=== PATIENT | female | born 1965 | race Caucasian/White ===

== ENCOUNTER → 2017-12-31 | Outpatient (REF) | payer BC ==
[2017-12-31 15:17] LABS: ANION GAP 8 MEQ/L (8-16); BLOOD UREA NITROGEN 16 MG/DL (7-18); CALCIUM LEVEL 8.9 MG/DL (8.5-10.1); CARBON DIOXIDE LEVEL 31 MEQ/L (21-32); CHLORIDE LEVEL 106 MEQ/L (98-107); CREATININE FOR GFR 0.95 MG/DL (0.55-1.30); GLOMERULAR FILTRATION RATE > 60.0 (>51); GLUCOSE, FASTING 115 MG/DL (70-100); POTASSIUM SERUM 4.3 MEQ/L (3.5-5.1); SODIUM LEVEL 145 MEQ/L (136-145)
== END ==
LOC: M SFHCLACO 10:24
DX: I10 Essential (primary) hypertension (principal); E03.9 Hypothyroidism, unspecified

== ENCOUNTER → 2020-10-18 | Outpatient (REF) | payer BC ==
[2020-10-18 13:25] LABS: ALBUMIN 3.8 GM/DL (3.2-5.2); ALT/SGPT 41 U/L (12-78); BILIRUBIN,TOTAL 0.4 MG/DL (0.2-1.0); BLOOD UREA NITROGEN 19 MG/DL (7-18); CALCIUM LEVEL 8.8 MG/DL (8.5-10.1); CARBON DIOXIDE LEVEL 30 MEQ/L (21-32); CHLORIDE LEVEL 107 MEQ/L (98-107); CHOLESTEROL LEVEL 215 MG/DL (<200); CHOLESTEROL RISK RATIO 6.142 (<5); CREATININE FOR GFR 0.76 MG/DL (0.55-1.30); GLOMERULAR FILTRATION RATE > 60.0 (>51); GLUCOSE, FASTING 112 MG/DL (70-100); HDL CHOLESTEROL 35 MG/DL (>40); LDL CHOLESTEROL 117 MG/DL (<100); NON-HDL-C 180 MG/DL; POTASSIUM SERUM 4.2 MEQ/L (3.5-5.1); SODIUM LEVEL 142 MEQ/L (136-145); TOTAL PROTEIN 6.7 GM/DL (6.4-8.2); TRIGLYCERIDES LEVEL 315 MG/DL (<150)
== END ==
LOC: M SFHCADAM 10:04
PROVIDERS: ATTEND Physician Assistant
DX: E03.9 Hypothyroidism, unspecified (principal); I10 Essential (primary) hypertension; E66.01 Morbid (severe) obesity due to excess calories

== ENCOUNTER → 2021-01-02 | Outpatient (REF) | payer BC ==
[2021-01-02 15:08] LABS: HEMOGLOBIN A1c 6.3 %
== END ==
LOC: M SFHCADAM 09:39
PROVIDERS: ATTEND Physician Assistant
DX: R73.9 Hyperglycemia, unspecified (principal)

== ENCOUNTER 2021-01-09 15:50 | Emergency (ER) | payer BC ==
[~2021-01-09] VITALS: Ht 167.6 cm; Wt 90.2 kg
[2021-01-09] MEDS ORDERED: METO1TAB33 (16:12)
[2021-01-09] MEDS ORDERED: IRBE300T7 (16:12)
[2021-01-09] MEDS ORDERED: DILT120C89 (16:12)
[2021-01-09] MEDS ORDERED: LEVO75TA4 (16:12)
[2021-01-09] MEDS ORDERED: MELO15TA28 (16:12)
[2021-01-09] MEDS ORDERED: BUPR150T12 (16:12)
--- NOTE | 2021-01-09 17:50 | REPVR ---
PROCEDURE INFORMATION: Exam: CT Abdomen And Pelvis Without Contrast Exam date and time: 01/09/2021 5:19 PM Age: 55 years old Clinical indication: Abdominal pain; Additional info: R/O stone right flank, HX of same TECHNIQUE: Imaging protocol: Computed tomography of the abdomen and pelvis without contrast. Radiation optimization: All CT scans at this facility use at least one of these dose optimization techniques: automated exposure control; mA and/or kV adjustment per patient size (includes targeted exams where dose is matched to clinical indication); or iterative reconstruction. COMPARISON: No relevant prior studies available. FINDINGS: Lungs: No suspicious mass or airspace process in the visualized lung bases. Liver: Liver demonstrates fatty infiltration with focal sparing around the gallbladder fossa. Gallbladder and bile ducts: Gallbladder is present and shows no evidence of gallstone. Pancreas: Noncontrast pancreas shows no obvious mass or adjacent fluid. Spleen: Noncontrast spleen shows no obvious focal deformity. Adrenal glands: Adrenal glands are normal in appearance. Kidneys and ureters: Left kidney demonstrates nonobstructive calculi. Right kidney demonstrates perinephric stranding and moderate to severe hydroureteronephrosis secondary to a right UVJ stone measuring 4 x 2 mm. Stomach and bowel: No evidence of small bowel obstruction. No evidence of acute diverticulitis. Appendix: Normal caliber appendix is identified, with no adjacent inflammation. Intraperitoneal space: No pneumoperitoneum. Vasculature: No abdominal aortic aneurysm. Lymph nodes: No enlarged lymph nodes. Urinary bladder: Urinary bladder appears normal. Reproductive: Female reproductive organs appear unremarkable. Bones/joints: Bony structures are normal except for lumbar spine degenerative disc changes. Soft tissues: No effacement of normal fat planes in the ischiorectal fossa. Other findings: Limited evaluation without enteric or IV contrast. IMPRESSION: 1. Moderately severe right hydroureteronephrosis secondary to a 4 x 2 mm right UVJ stone. 2. Nonobstructive left renal calculi. 3. Diffuse hepatic steatosis and hepatomegaly Electronically signed by: Gulshan Parks On 01/09/2021 17:49:47 PM
[2021-01-09 18:34] LABS: BASO % 0.1 % (0.0-1.0); EOS # 0.1 10^3/uL (0.0-0.5); EOS % 0.7 % (0.0-3.0); HEMATOCRIT 44.7 % (36.0-47.0); HEMOGLOBIN 15.5 g/dl (12.0-15.5); LYMPH # 3.1 10^3/uL (1.5-5.0); LYMPH % 21.6 % (24.0-44.0); MEAN CORPUSCULAR HEMOGLOBIN 30.5 pg (27.0-33.0); MEAN CORPUSCULAR HGB CONC 34.7 g/dl (32.0-36.5); MONO # 1.1 10^3/uL (0.0-0.8); MONO % 7.7 % (2.0-8.0); NEUTROPHILS # 9.8 10^3/uL (1.5-8.5); NEUTROPHILS % 69.5 % (36.0-66.0); PLATELET COUNT, AUTOMATED 307 10^3/uL (150-450); RED BLOOD COUNT 5.08 10^6/uL (4.00-5.40); WHITE BLOOD COUNT 14.1 10^3/uL (4.0-10.0)
[2021-01-09] MEDS ORDERED: NS 500 ML IV ONE (18:45)
[2021-01-09 18:57] LABS: ALBUMIN 4.3 GM/DL (3.2-5.2); BILIRUBIN,DIRECT 0.2 MG/DL (0.0-0.2); BILIRUBIN,TOTAL 0.8 MG/DL (0.2-1.0); CALCIUM LEVEL 9.1 MG/DL (8.5-10.1); CREATININE FOR GFR 1.21 MG/DL (0.55-1.30); POTASSIUM SERUM 3.2 MEQ/L (3.5-5.1); TOTAL PROTEIN 7.5 GM/DL (6.4-8.2)
[2021-01-09] MEDS ORDERED: KETOROLAC 30 MG/ML 1ML VIAL IV ONE (19:05)
[2021-01-09] MEDS ORDERED: FLOM0.4C39 PO (19:54)
[2021-01-09] MEDS ORDERED: KETO10TAB PO (19:54)
[2021-01-09 19:55] VITALS: BP 159/85
== END 2021-01-09 20:16 | disposition home or self-care (01) ==
LOC: M ED 15:50
DX: N13.2 Hydronephrosis with renal and ureteral calculous obstruction (principal); K76.0 Fatty (change of) liver, not elsewhere classified; R16.0 Hepatomegaly, not elsewhere classified; I10 Essential (primary) hypertension; E03.9 Hypothyroidism, unspecified; Z79.890 Hormone replacement therapy; Z79.899 Other long term (current) drug therapy
CPT/HCPCS: 74176; 80048; 80076; 81001; 83690; 85025; 96361; 96374; 99283; J1885

== ENCOUNTER → 2021-02-02 | Outpatient (REF) | payer BC ==
[~2021-02-02] MED LIST: BUPR150T12; DILT120C89; FLOM0.4C39 PO; IRBE300T7; KETO10TAB PO; LEVO75TA4; MELO15TA28; METO1TAB33
[2021-02-02 13:33] LABS: APPEARANCE, URINE CLOUDY (CLEAR); BACTERIA, URINE AUTO NEGATIVE (NEGATIVE); BILIRUBIN, URINE AUTO NEGATIVE (NEGATIVE); BLOOD, URINE BLOOD NEGATIVE (NEGATIVE); COLOR, URINE AMBER (YELLOW); GLUCOSE, URINE (UA) AUTO NEGATIVE (NEGATIVE); KETONE, URINE AUTO NEGATIVE (NEGATIVE); LEUKOCYTE ESTERASE, URINE AUTO TRACE (NEGATIVE); MUCUS, URINE SMALL (NEGATIVE); NITRITE, URINE AUTO NEGATIVE (NEGATIVE); PROTEIN, URINE AUTO 1+ mg/dL (NEGATIVE); RBC, URINE AUTO 4 /HPF (0-3); SPECIFIC GRAVITY URINE AUTO 1.016 (1.002-1.035); SQUAMOUS EPITHELIAL CELL UR AU 2 /HPF (0-6); UROBILINOGEN, URINE AUTO 0.2 mg/dL (0.0-2.0); WBC, URINE AUTO 6 /HPF (0-3)
== END ==
LOC: M SMT 13:05
PROVIDERS: ATTEND Nurse Practitioner Family
DX: N20.0 Calculus of kidney (principal)

== ENCOUNTER → 2021-02-21 | Outpatient (CLI) | payer BC ==
--- NOTE | 2021-02-21 21:59 | REP ---
INDICATION: KIDNEY STONES COMPARISON: None. TECHNIQUE: Supine view of the abdomen and pelvis. FINDINGS: Evaluation of the urinary tract system is limited due to excessive amounts of stool throughout the colon. However, nonobstructing left lower pole intrarenal calculi are identified with a grouping of small stones measuring roughly 4.5 x 8 mm. IMPRESSION: Limited examination. Left intrarenal calculi noted. <Electronically signed by Smith Castro > 02/21/21 [id number]
== END ==
LOC: M ADAMS 14:06
PROVIDERS: ATTEND Nurse Practitioner Family
DX: N20.0 Calculus of kidney (principal)

== ENCOUNTER → 2021-02-24 | Outpatient (CLI) | payer BC ==
--- NOTE | 2021-02-24 18:12 | REP ---
INDICATION: RENAL STONE COMPARISON: None TECHNIQUE: Real time caldwell scale ultrasound examination using curved array transducer. FINDINGS: Bilateral kidneys are normal in contour, size, echogenicity, and reniform shape. No hydronephrosis, nephrolithiasis, cystic or renal mass lesion identified. IMPRESSION: 1. Normal appearance of the bilateral kidneys. No obvious hydronephrosis or nephrolithiasis. <Electronically signed by Smith Castro > 02/24/21 [id number]
--- NOTE | 2021-02-24 18:15 | REP ---
INDICATION: RENAL STONE COMPARISON: None TECHNIQUE: Real time B-mode ultrasound examination using curved array transducer. FINDINGS: Findings suggest mild bladder wall thickening. No obvious bladder stones or mass lesion identified. A left ureteral jet was noted, but no right ureteral jet was identified during examination. Prevoid bladder measures 5.9 x 6.0 x 3.2 cm (74 cc). Postvoid bladder measures 2.6 x 3.2 x 1.6 cm (8.7 cc). Postvoid residual: 12% IMPRESSION: 1. No right ureteral jet identified during examination. Findings are nonspecific although right ureteral obstruction cannot be excluded and should be correlated with physical examination. <Electronically signed by Smith Castro > 02/24/21 [id number]
== END ==
LOC: M RAD 16:44
PROVIDERS: ATTEND Nurse Practitioner Family
DX: N20.0 Calculus of kidney (principal)

== ENCOUNTER → 2021-03-01 | Outpatient (CLI) | payer BC ==
[~2021-03-01] MED LIST changes: +ASPI81TA26 PO; -BUPR150T12; +BUPR150T12 PO; +CYMB60CA3 PO; -DILT120C89; +DILT120C89 PO; +HYDR-3713 PO; -IRBE300T7; +IRBE300T7 PO; -LEVO75TA4; +LEVO75TA4 PO; -MELO15TA28; +MELO15TA28 PO; -METO1TAB33; +METO1TAB33 PO; +VITMTA PO
== END ==
LOC: M LABSMTC 12:03
PROVIDERS: ATTEND Anesthesiology
DX: Z01.812 Encounter for preprocedural laboratory examination (principal); Z20.822 Contact with and (suspected) exposure to COVID-19

== ENCOUNTER → 2021-03-01 | Outpatient (REF) | payer BC ==
[2021-03-01 13:08] LABS: APPEARANCE, URINE HAZY (CLEAR); BACTERIA, URINE AUTO NEGATIVE (NEGATIVE); BILIRUBIN, URINE AUTO NEGATIVE (NEGATIVE); BLOOD, URINE BLOOD NEGATIVE (NEGATIVE); COLOR, URINE AMBER (YELLOW); GLUCOSE, URINE (UA) AUTO NEGATIVE (NEGATIVE); KETONE, URINE AUTO NEGATIVE (NEGATIVE); LEUKOCYTE ESTERASE, URINE AUTO TRACE (NEGATIVE); MUCUS, URINE SMALL (NEGATIVE); NITRITE, URINE AUTO NEGATIVE (NEGATIVE); PROTEIN, URINE AUTO NEGATIVE (NEGATIVE); RBC, URINE AUTO 1 /HPF (0-3); SPECIFIC GRAVITY URINE AUTO 1.013 (1.002-1.035); SQUAMOUS EPITHELIAL CELL UR AU 2 /HPF (0-6); UROBILINOGEN, URINE AUTO 0.2 mg/dL (0.0-2.0); WBC, URINE AUTO 4 /HPF (0-3)
== END ==
LOC: M SMT 12:46
PROVIDERS: ATTEND Nurse Practitioner Women's Health
DX: Z01.812 Encounter for preprocedural laboratory examination (principal); N20.0 Calculus of kidney

== ENCOUNTER → 2021-03-01 | Outpatient (REF) | payer BC ==
[2021-03-01 17:14] LABS: HEMOGLOBIN 14.5 g/dl (12.0-15.5); MEAN CORPUSCULAR HGB CONC 33.7 g/dl (32.0-36.5); MEAN CORPUSCULAR VOLUME 91.9 fl (80.0-96.0); PLATELET COUNT, AUTOMATED 352 10^3/uL (150-450); RED BLOOD COUNT 4.68 10^6/uL (4.00-5.40); WHITE BLOOD COUNT 8.5 10^3/uL (4.0-10.0)
[2021-03-01 17:31] LABS: BLOOD UREA NITROGEN 15 MG/DL (7-18); CALCIUM LEVEL 9.2 MG/DL (8.5-10.1); CARBON DIOXIDE LEVEL 30 MEQ/L (21-32); CHLORIDE LEVEL 108 MEQ/L (98-107); CREATININE FOR GFR 0.91 MG/DL (0.55-1.30); GLOMERULAR FILTRATION RATE > 60.0 (>51); GLUCOSE, FASTING 128 MG/DL (70-100); POTASSIUM SERUM 4.6 MEQ/L (3.5-5.1); SODIUM LEVEL 143 MEQ/L (136-145)
[2021-03-01 17:52] LABS: INR 0.96; PROTHROMBIN TIME 13.2 SECONDS (12.7-14.5)
[2021-03-01 17:53] LABS: PARTIAL THROMBOPLASTIN TIME 29.3 SECONDS (25.9-37.0)
== END ==
LOC: M SFHCADAM 13:14
PROVIDERS: ATTEND Nurse Practitioner Women's Health
DX: Z01.812 Encounter for preprocedural laboratory examination (principal); N20.0 Calculus of kidney

== ENCOUNTER 2021-03-02 06:59 | Day surgery (SDC) | payer BC ==
[~2021-03-02] VITALS: Ht 167.6 cm; Wt 87.5 kg
[~2021-03-02 06:59] MED LIST changes: -HYDR-3713 PO; +ceFAZolin SOD 2 GM in IV 1 EA IV ONE
[2021-03-02] MEDS ORDERED: LIDOCAINE 2% 100MG/5ML SDV (FOR ANES.) As Ordered ONE (07:17)
[2021-03-02] MEDS ORDERED: propofoL 500 MG/50 ML VIAL As Ordered ONE (07:18)
[2021-03-02] MEDS ORDERED: MIDAZOLAM INJ 2MG/2ML VIAL (J2250 PER 1MG) As Ordered ONE (07:20)
[2021-03-02] MEDS ORDERED: fentaNYL 100 MCG/2 ML INJECTION (J3010) As Ordered ONE (07:21)
--- NOTE | 2021-03-02 08:35 | REP ---
INDICATION: KUB PRIOR TO SDC COMPARISON: 02/21/2021 TECHNIQUE: Supine view of the abdomen and pelvis. FINDINGS: Nonobstructing lower pole left renal calculi measuring up to 10 mm. Further evaluation of the urinary tract system is limited due to overlying bowel gas. No bowel obstruction. No obvious organomegaly. Phleboliths noted in the pelvis. Skeletal structures intact. IMPRESSION: Nonobstructing left renal calculi. <Electronically signed by Smith Castro > 03/02/21 [id number]
[2021-03-02] MEDS ORDERED: ceFAZolin 2 GM/D5W 50 ML IV BAG (J0690 PER 500MG) As Ordered ONE (08:44)
--- NOTE | 2021-03-02 08:46 | ROOPDOC ---
[facility] Report Of Operation Report of Operation DATE OF PROCEDURE: 03/02/21 PREPROCEDURE DIAGNOSES: [left renal stone]. POSTPROCEDURE DIAGNOSES: [same]. PROCEDURE PERFORMED: [eswl left renal stone]. SURGEON: [Nicolasa]MD SUPERVISOR PLEATING: [none], ANESTHESIA: [mac]. ESTIMATED BLOOD LOSS: Approximately [0] mL. COMPLICATIONS: [none]. REMARKS: [55yo wf with left renal stones. Options discussed. Pt opted for eswl. No guarantees given. Risks discussed including infection, pain, bleeding, scarring, failure of surgery, need for more surgery, injury to gu tract and others.]. FINDINGS: SPECIMENS REMOVED: [none] PROCEDURE NOTE: . DESCRIPTION OF PROCEDURE: [Met with pt in preop area and surgery discussed. Pt wished to proceed. Questions answered. Pt brought to OR room. Supine position on lithotripter. Well padded. Surgery done under IV antibiotic. Time out performed. Mac anesthesia. Fluroscopy used to locate stone. Stone easily seen. Eswl performed. 2500 shocks. Fluoroscopy used intermittently. Power increased throughout. Pt tolerated all well.]. EDDIE CARBONE MD Mar 02, 2021 08:46
[2021-03-02] MEDS ORDERED: HYDR-3713 PO (08:54)
[2021-03-02] MEDS ORDERED: ONDANSETRON 4MG/2ML VIAL As Ordered ONE (08:59)
[2021-03-02] MEDS ORDERED: dexameTHASONE 4 MG/ML 1ML VIAL (J1100 PER 1MG) As Ordered ONE (08:59)
[2021-03-02] MEDS ORDERED: KETOROLAC 60MG 2ML VIAL As Ordered ONE (08:59)
[2021-03-02 10:15] VITALS: BP 120/68
== END 2021-03-02 10:21 | disposition home or self-care (01) ==
LOC: M SDC 06:59
PROVIDERS: ATTEND Urology
DX: E03.9 Hypothyroidism, unspecified (principal); N20.0 Calculus of kidney; F32.9 Major depressive disorder, single episode, unspecified; Z79.82 Long term (current) use of aspirin; Z79.899 Other long term (current) drug therapy
CPT/HCPCS: 50590; 74018; J0690; J1100; J1885; J2250; J2405; J3010

== ENCOUNTER → 2021-06-27 | Outpatient (REF) | payer BC ==
[~2021-06-27] MED LIST changes: -CYMB60CA3 PO; +CYMB60CA4 PO; +HYDR-3713 PO; -ceFAZolin SOD 2 GM in IV 1 EA IV ONE
[2021-06-27 17:51] LABS: APPEARANCE, URINE CLOUDY (CLEAR); BACTERIA, URINE AUTO NEGATIVE (NEGATIVE); BILIRUBIN, URINE AUTO 1+ (NEGATIVE); BLOOD, URINE BLOOD NEGATIVE (NEGATIVE); CALCIUM OXALATE CRYSTALS MODERATE; COLOR, URINE AMBER (YELLOW); GLUCOSE, URINE (UA) AUTO NEGATIVE (NEGATIVE); KETONE, URINE AUTO TRACE mg/dL (NEGATIVE); LEUKOCYTE ESTERASE, URINE AUTO 1+ (NEGATIVE); MUCUS, URINE SMALL (NEGATIVE); NITRITE, URINE AUTO NEGATIVE (NEGATIVE); PROTEIN, URINE AUTO 2+ mg/dL (NEGATIVE); RBC, URINE AUTO 0 /HPF (0-3); SPECIFIC GRAVITY URINE AUTO 1.024 (1.002-1.035); SQUAMOUS EPITHELIAL CELL UR AU 3 /HPF (0-6); WBC, URINE AUTO 46 /HPF (0-3)
[2021-06-27 18:22] LABS: ALT/SGPT 44 U/L (12-78); BILIRUBIN,TOTAL 0.6 MG/DL (0.2-1.0); BLOOD UREA NITROGEN 16 MG/DL (7-18); CALCIUM LEVEL 9.3 MG/DL (8.5-10.1); CARBON DIOXIDE LEVEL 29 MEQ/L (21-32); CHLORIDE LEVEL 108 MEQ/L (98-107); CHOLESTEROL LEVEL 234 MG/DL (<200); CREATININE FOR GFR 1.12 MG/DL (0.55-1.30); GLOMERULAR FILTRATION RATE 53.6 (>51); GLUCOSE, FASTING 138 MG/DL (70-100); HDL CHOLESTEROL 36 MG/DL (>40); LDL CHOLESTEROL 137 MG/DL (<100); NON-HDL-C 198 MG/DL; POTASSIUM SERUM 3.8 MEQ/L (3.5-5.1); SODIUM LEVEL 143 MEQ/L (136-145); THYROID STIMULATING HORMONE 0.929 uIU/ML (0.358-3.740); TOTAL PROTEIN 7.3 GM/DL (6.4-8.2); TRIGLYCERIDES LEVEL 306 MG/DL (<150)
[2021-06-27 18:23] LABS: HEPATITIS B SURFACE ANTIBODY NEGATIVE (POSITIVE)
[2021-06-27 18:29] LABS: HEMOGLOBIN A1c 6.1 %
[2021-06-27 18:34] LABS: HEPATITIS B SURFACE ANTIGEN NEGATIVE (NEGATIVE)
[2021-06-27 19:02] LABS: HEPATITIS B CORE ANTIBODY IGM NEGATIVE (NEGATIVE); HEPATITIS C VIRUS ABY INDEX 0.1 INDEX (<0.8)
== END ==
LOC: M SFHCADAM 14:15
PROVIDERS: ATTEND Physician Assistant
DX: Z00.00 Encounter for general adult medical examination without abnormal findings (principal); I10 Essential (primary) hypertension; E03.9 Hypothyroidism, unspecified; E66.01 Morbid (severe) obesity due to excess calories; R73.9 Hyperglycemia, unspecified

== ENCOUNTER → 2021-07-11 | Outpatient (CLI) | payer BC ==
--- NOTE | 2021-07-11 21:02 | REP ---
INDICATION: NEPHROLITHIASIS COMPARISON: 03/02/2021 TECHNIQUE: Supine view of the abdomen and pelvis. FINDINGS: Evaluation for urinary tract calcifications is limited due to overlying bowel gas. No obvious renal stones are identified. Calcifications in the pelvis likely represent phleboliths. The bowel gas pattern is nonspecific. No organomegaly. No foreign body. Skeletal structures are age-appropriate. IMPRESSION: Limited evaluation for underlying urinary tract calcifications. <Electronically signed by Smith Castro > 07/11/21 [id number]
== END ==
LOC: M ADAMS 15:24
PROVIDERS: ATTEND Urology
DX: N20.0 Calculus of kidney (principal)

== ENCOUNTER → 2022-08-05 | Outpatient (CLI) | payer BC | LOC: M LABSMTC 12:06 | PROVIDERS: ATTEND Anesthesiology | DX: Z01.812 Encounter for preprocedural laboratory examination (principal); Z11.52 Encounter for screening for COVID-19 ==

== ENCOUNTER 2022-08-08 07:32 | Day surgery (SDC) | payer BC ==
[~2022-08-08] VITALS: Ht 167.6 cm; Wt 87.5 kg
[~2022-08-08 07:32] MED LIST changes: +NS 1,000 ML IV ONE
[2022-08-08] MEDS ORDERED: propofoL 200 MG/20 ML VIAL As Ordered ONE ×2 (08:22→08:34)
[2022-08-08] MEDS ORDERED: LIDOCAINE 2% 100MG/5ML SDV (FOR ANES.) As Ordered ONE (08:22)
[2022-08-08 09:00] VITALS: BP 135/92
== END 2022-08-08 09:08 | disposition home or self-care (01) ==
LOC: M OPP 07:32
PROVIDERS: ATTEND Surgery
DX: Z12.11 Encounter for screening for malignant neoplasm of colon (principal); K64.8 Other hemorrhoids; Z79.1 Long term (current) use of non-steroidal anti-inflammatories (NSAID); Z79.890 Hormone replacement therapy; Z79.899 Other long term (current) drug therapy; I10 Essential (primary) hypertension; E03.9 Hypothyroidism, unspecified; Z87.442 Personal history of urinary calculi

== ENCOUNTER → 2023-06-27 | Outpatient (REF) | payer BC ==
[~2023-06-27] MED LIST changes: -NS 1,000 ML IV ONE
== END ==
LOC: M SFHCADAM 15:42
PROVIDERS: ATTEND Physician Assistant
DX: Z53.9 Procedure and treatment not carried out, unspecified reason (principal); I10 Essential (primary) hypertension; E78.00 Pure hypercholesterolemia, unspecified; Z12.31 Encounter for screening mammogram for malignant neoplasm of breast

== ENCOUNTER 2024-04-18 18:01 | Inpatient (IN) | payer BC ==
[~2024-04-18] VITALS: Ht 167.6 cm; Wt 83.5 kg
[~2024-04-18 18:01] MED LIST changes: +IRBE300T25 PO; -IRBE300T7 PO
[2024-04-18 19:33] LABS: HEMATOCRIT 37.3 % (36.0-47.0); HEMOGLOBIN 13.4 g/dl (12.0-15.5); MEAN CORPUSCULAR HEMOGLOBIN 30.7 pg (27.0-33.0); MEAN CORPUSCULAR HGB CONC 35.9 g/dl (32.0-36.5); MEAN CORPUSCULAR VOLUME 85.4 fl (80.0-96.0); RED BLOOD COUNT 4.37 10^6/uL (4.00-5.40); WHITE BLOOD COUNT 28.4 10^3/uL (4.0-10.0)
[2024-04-18] MEDS: KETOROLAC 30 MG/ML 1ML VIAL IV ONE (19:45)
[2024-04-18] MEDS: ONDANSETRON 4MG 2ML VIAL IV ONE (19:45)
[2024-04-18 19:52] LABS: PLATELET COUNT, AUTOMATED 78 10^3/uL (150-450)
[2024-04-18 19:58] LABS: ATYPICAL LYMPH 1 % (0-5); BASOPHILS 1 % (0-1); LYMPHOCYTES 5 % (16-44); MONOCYTES 16 % (0-5); NEUTROPHILS 63 % (28-66); PLATELET ESTIMATE DECREASED (NORMAL)
[2024-04-18 20:01] LABS: ANISOCYTOSIS 1+
[2024-04-18] MEDS: NS 1,000 ML IV ONE ×3 (20:10→23:25)
[2024-04-18] MEDS: NS 2,310 ML in IV 1 EA IV ONE (20:15)
[2024-04-18] MEDS: cefTRIAXone SOD 2 GM in DEXTROSE 5% (D5W) ADV/MINI-BAG 50 ML IV ONE (20:33)
[2024-04-18 21:30] LABS: ALBUMIN 2.7 G/DL (3.2-5.2); BILIRUBIN,DIRECT 0.3 MG/DL (<0.4); BILIRUBIN,TOTAL 0.7 MG/DL (0.3-1.2); CALCIUM LEVEL 8.3 MG/DL (8.5-10.1); CREATININE FOR GFR 3.81 MG/DL (0.55-1.30); GLOMERULAR FILTRATION RATE 12.9 (>51); POTASSIUM SERUM 4.7 MMOL/L (3.5-5.1); TOTAL PROTEIN 5.8 G/DL (5.7-8.2)
[2024-04-18] MEDS: NS 1,000 ML IV SCH (23:00)
[2024-04-18] MEDS ORDERED: MOM 30ML SUSPENSION UDC PO PRN (23:10)
[2024-04-18] MEDS ORDERED: DILT240C83 PO (23:37)
[2024-04-18] MEDS ORDERED: HOME MED LIST COMPLETE! XX SCH (23:40)
[2024-04-19] VITALS (16 sets, daily range): BP systolic 87–147; BP diastolic 54–98; TEMP 96.9–98.3; O2SAT 88–99
[2024-04-19] MEDS: ACETAMINOPHEN 325 MG TAB PO PRN (00:59)
[2024-04-19] MEDS: ONDANSETRON 4MG 2ML VIAL IV PRN (01:00)
[2024-04-19 01:40] LABS: APPEARANCE, URINE CLOUDY (CLEAR); BACTERIA, URINE AUTO 2+ (NEGATIVE); BILIRUBIN, URINE AUTO NEGATIVE (NEGATIVE); BLOOD, URINE BLOOD 3+ (NEGATIVE); COLOR, URINE AMBER (YELLOW); GLUCOSE, URINE (UA) AUTO NEGATIVE (NEGATIVE); KETONE, URINE AUTO NEGATIVE (NEGATIVE); LEUKOCYTE ESTERASE, URINE AUTO 3+ (NEGATIVE); MUCUS, URINE SMALL (NEGATIVE); NITRITE, URINE AUTO NEGATIVE (NEGATIVE); PROTEIN, URINE AUTO 2+ mg/dL (NEGATIVE); RBC, URINE AUTO 8 /HPF (0-3); SPECIFIC GRAVITY URINE AUTO 1.012 (1.002-1.035); SQUAMOUS EPITHELIAL CELL UR AU 5 /HPF (0-6); UROBILINOGEN, URINE AUTO 0.2 mg/dL (0.0-2.0); WBC, URINE AUTO 102 /HPF (0-3)
[2024-04-19 03:00] LABS: ALBUMIN 2.1 G/DL (3.2-5.2); BILIRUBIN,TOTAL 0.5 MG/DL (0.3-1.2); CALCIUM LEVEL 7.2 MG/DL (8.5-10.1); CREATININE FOR GFR 3.2 MG/DL (0.55-1.30); GLOMERULAR FILTRATION RATE 15.8 (>51); MAGNESIUM LEVEL 1.3 MG/DL (1.8-2.4); POTASSIUM SERUM 5.5 MMOL/L (3.5-5.1); TOTAL PROTEIN 4.9 G/DL (5.7-8.2)
[2024-04-19] MEDS: HumuLIN R (REGULAR) INSULIN (NovoLIN R) **100U/ML** PER UNIT IV STA (03:55)
[2024-04-19] MEDS: DEXTROSE 50% 50ML SYRINGE IV STA (03:55)
[2024-04-19] MEDS: CALCIUM GLUCONATE 1,000 MG in DEXTROSE 5% (D5W) MINI-BAG PLU 100 ML IV ONE ×2 (04:01→10:48)
[2024-04-19] MEDS: MAG SULF 1GM/100ML (MAG RUN) 1 GM in IV 1 EA IV ONE (05:26)
[2024-04-19 08:24] LABS: HEMOGLOBIN A1c 10.3 % (4.0-6.0)
[2024-04-19] MEDS ORDERED: MEPERIDINE 25 MG/ML 1ML VIAL IV PRN (08:50)
[2024-04-19] MEDS ORDERED: ONDANSETRON 4MG 2ML VIAL IV PRN (08:50)
[2024-04-19] MEDS ORDERED: fentaNYL 100 MCG/2 ML INJECTION IV PRN (08:50)
[2024-04-19] MEDS ORDERED: HYDROMORPHONE HCL 0.5 MG/ 0.5 ML SYRINGE IV PRN (08:50)
[2024-04-19] MEDS ORDERED: oxyCODONE 5MG TAB PO PRN (08:50)
[2024-04-19] MEDS: ISOVUE-300 61% 100ML VIAL As Ordered ONE (09:30)
[2024-04-19] MEDS: LIDOCAINE 2% 5ML JELLY UROJET As Ordered ONE (09:38)
[2024-04-19 09:48] LABS: CALCIUM LEVEL 8.2 MG/DL (8.5-10.1); CREATININE FOR GFR 2.84 MG/DL (0.55-1.30); GLOMERULAR FILTRATION RATE 18.1 (>51); POTASSIUM SERUM 4.4 MMOL/L (3.5-5.1)
[2024-04-19] MEDS: PHENYLephrine 500MCG 5ML (100MCG/ML) SYRINGE IV PRN (10:00)
[2024-04-19] MEDS ORDERED: ONDANSETRON 4MG 2ML VIAL As Ordered ONE (10:23)
[2024-04-19] MEDS ORDERED: fentaNYL 100 MCG/2 ML INJECTION As Ordered ONE (10:23)
[2024-04-19] MEDS ORDERED: PHENYLephrine 500MCG 5ML (100MCG/ML) SYRINGE As Ordered ONE (10:23)
[2024-04-19] MEDS ORDERED: MIDAZOLAM INJ 2MG/2ML VIAL As Ordered ONE (10:23)
[2024-04-19] MEDS ORDERED: propofoL 200 MG/20 ML VIAL As Ordered ONE (10:23)
[2024-04-19] MEDS ORDERED: LIDOCAINE 2% 100MG/5ML SDV (FOR ANES.) As Ordered ONE (10:23)
[2024-04-19] MEDS ORDERED: KETOROLAC 60MG 2ML VIAL As Ordered ONE (10:23)
[2024-04-19] MEDS ORDERED: dexmedeTOMIDine (4MCG/ML)200MCG/50ML BTL (PRECEDEX) As Ordered ONE (10:23)
[2024-04-19] MEDS ORDERED: NOREPINEPHRINE 4MG IN D5 250ML 4 MG in IV 1 EA IV SCH (10:25)
[2024-04-19] MEDS: PATIROMER SORBITEX CALCIUM 8.4 GM POWDER PACKET (VELTASSA) PO ONE (10:48)
[2024-04-19] MEDS ORDERED: GLUCOSE 4 GM CHEW PO PRN (14:55)
[2024-04-19] MEDS ORDERED: PERCOCET 5MG/325MG TAB PO PRN (14:55)
[2024-04-19] MEDS ORDERED: SENOKOT S TAB PO PRN (14:55)
[2024-04-19] MEDS ORDERED: BISACODYL 5MG TAB PO PRN (14:55)
[2024-04-19] MEDS ORDERED: DEXTROSE 50% 50ML SYRINGE IV PRN (14:55)
[2024-04-19] MEDS ORDERED: GLUCAGON INJ 1MG VIAL SC PRN (14:55)
[2024-04-19] MEDS: INSULIN LISPRO (NovoLOG) PER UNIT SC SCH ×2 (17:14→20:34)
[2024-04-19] MEDS: LACTOBACILLUS ACIDOPHILUS CAP (BACID) PO SCH (17:45)
[2024-04-19] MEDS: cefTRIAXone SOD 1 GM in DEXTROSE 5% (D5W) ADV/MINI-BAG 50 ML IV SCH (20:34)
[2024-04-20] VITALS (9 sets, daily range): BP systolic 132–151; BP diastolic 70–96; TEMP 97.3–98.2; O2SAT 89–99
[2024-04-20 06:14] LABS: BASO # 0.1 10^3/uL (0.0-0.2); BASO % 0.5 % (0.0-1.0); HEMATOCRIT 35.2 % (36.0-47.0); HEMOGLOBIN 12.2 g/dl (12.0-15.5); LYMPH # 1.2 10^3/uL (1.5-5.0); LYMPH % 4.4 % (24.0-44.0); MEAN CORPUSCULAR HEMOGLOBIN 30.2 pg (27.0-33.0); MEAN CORPUSCULAR HGB CONC 34.7 g/dl (32.0-36.5); MEAN CORPUSCULAR VOLUME 87.1 fl (80.0-96.0); MONO # 0.8 10^3/uL (0.0-0.8); NEUTROPHILS # 24.5 10^3/uL (1.5-8.5); NEUTROPHILS % 89.9 % (36.0-66.0); RED BLOOD COUNT 4.04 10^6/uL (4.00-5.40); WHITE BLOOD COUNT 27.2 10^3/uL (4.0-10.0)
[2024-04-20 06:18] LABS: PLATELET COUNT, AUTOMATED 45 10^3/uL (150-450)
[2024-04-20 06:32] LABS: CALCIUM LEVEL 8.6 MG/DL (8.5-10.1); CREATININE FOR GFR 1.81 MG/DL (0.55-1.30); GLOMERULAR FILTRATION RATE 30.5 (>51)
[2024-04-20] MEDS ORDERED: ONDANSETRON 4MG 2ML VIAL IV PRN (08:05)
[2024-04-20] MEDS ORDERED: oxyCODONE 5MG TAB PO PRN (08:05)
[2024-04-20] MEDS: METOPROLOL TART 12.5 MG PER 1/2 TAB PO SCH (09:04)
[2024-04-20] MEDS: LEVEMIR (INSULIN DETEMIR) 1 UNITS/0.01ML SC SCH (09:05)
[2024-04-20] MEDS: NS 1,000 ML IV ONE ×2 (11:59→13:03)
[2024-04-20] MEDS: cefTRIAXone SOD 2 GM in DEXTROSE 5% (D5W) ADV/MINI-BAG 50 ML IV SCH (13:00)
[2024-04-20] MEDS: NS 1,000 ML IV SCH (15:02)
[2024-04-20 18:59] LABS: CREATININE FOR GFR 1.34 MG/DL (0.55-1.30); GLOMERULAR FILTRATION RATE 43.1 (>51); POTASSIUM SERUM 3.9 MMOL/L (3.5-5.1)
[2024-04-21] VITALS (13 sets, daily range): BP systolic 139–148; BP diastolic 86–95; TEMP 97.7–98.4; O2SAT 88–95
[2024-04-21] MEDS: PERCOCET 5MG/325MG TAB PO PRN (01:59)
[2024-04-21] MEDS ORDERED: BACI1CAP PO (07:35)
[2024-04-21] MEDS ORDERED: LEVO1TAB40 PO (07:35)
[2024-04-21 07:51] LABS: BASO % 0.2 % (0.0-1.0); EOS % 0.2 % (0.0-3.0); HEMATOCRIT 33.3 % (36.0-47.0); HEMOGLOBIN 11.3 g/dl (12.0-15.5); LYMPH # 1.5 10^3/uL (1.5-5.0); MEAN CORPUSCULAR HEMOGLOBIN 30.3 pg (27.0-33.0); MEAN CORPUSCULAR HGB CONC 33.9 g/dl (32.0-36.5); MEAN CORPUSCULAR VOLUME 89.3 fl (80.0-96.0); MONO # 1.4 10^3/uL (0.0-0.8); NEUTROPHILS # 13.9 10^3/uL (1.5-8.5); NEUTROPHILS % 81.7 % (36.0-66.0); RED BLOOD COUNT 3.73 10^6/uL (4.00-5.40); WHITE BLOOD COUNT 17.1 10^3/uL (4.0-10.0)
[2024-04-21 08:11] LABS: PLATELET COUNT, AUTOMATED 46 10^3/uL (150-450)
[2024-04-21] MEDS ORDERED: PERC5TAB12 PO (08:17)
[2024-04-21 08:20] LABS: CALCIUM LEVEL 8.1 MG/DL (8.5-10.1); CREATININE FOR GFR 1.1 MG/DL (0.55-1.30); GLOMERULAR FILTRATION RATE 54.1 (>51); MAGNESIUM LEVEL 1.7 MG/DL (1.8-2.4); POTASSIUM SERUM 3.6 MMOL/L (3.5-5.1)
[2024-04-21] MEDS: METOPROLOL TART 25 MG TABLET PO ONE (08:53)
[2024-04-21] MEDS ORDERED: GLUC1TES2 XX (09:13)
[2024-04-21] MEDS ORDERED: ALCOPAD25 TOP (09:13)
[2024-04-21] MEDS ORDERED: METF-839 PO (09:13)
[2024-04-21] MEDS ORDERED: LANC30MI XX (09:13)
[2024-04-21] MEDS ORDERED: BLOOKIT21 XX (09:13)
[2024-04-21] MEDS: metOLazone 2.5 MG TAB PO ONE (12:41)
[2024-04-21] MEDS: MAG SULF 1GM/100ML (MAG RUN) 1 GM in IV 1 EA IV ONE (12:41)
[2024-04-21] MEDS: POTASSIUM CHLORIDE 10MEQ SR TABLET PO ONE (12:41)
[2024-04-21] MEDS: FOSFOMYCIN TROMETHAMINE 3 GM POWDER PACKET (MONUROL) PO ONE (12:42)
[2024-04-21] MEDS: FUROSEMIDE 20MG/2ML VIAL IV ONE (13:44)
== END 2024-04-21 14:40 | disposition home or self-care (01) | DRG 720 ==
LOC: M ED 18:01 → M ED INP 23:07 → M ICU 04-19 01:22 → M PCU 04-19 15:53 → M MS5PR 04-20 17:18
PROVIDERS: ADMIT Internal Medicine; ATTEND General Practice
PROC: 0T774DZ Dilation of Left Ureter with Intraluminal Device, Percutaneous Endoscopic Approach (ICD-10-PCS; principal; 2024-04-19 09:00)
DX: A41.9 Sepsis, unspecified organism (principal); R65.21 Severe sepsis with septic shock; E87.20 Acidosis, unspecified; N17.9 Acute kidney failure, unspecified; D69.6 Thrombocytopenia, unspecified; E87.1 Hypo-osmolality and hyponatremia; E11.65 Type 2 diabetes mellitus with hyperglycemia; E87.5 Hyperkalemia; E83.42 Hypomagnesemia; N13.2 Hydronephrosis with renal and ureteral calculous obstruction; E03.9 Hypothyroidism, unspecified; I10 Essential (primary) hypertension; N10 Acute pyelonephritis; B96.20 Unspecified Escherichia coli [E. coli] as the cause of diseases classified elsewhere; F32.A Depression, unspecified; Z79.899 Other long term (current) drug therapy

== ENCOUNTER → 2024-05-01 | Outpatient (REF) | payer BC, MEDICARE ==
[~2024-05-01] MED LIST changes: +ALCOPAD25 TOP; +BACI1CAP PO; +BLOOKIT21 XX; +DILT240C83 PO; +GLUC1TES2 XX; +LANC30MI XX; +LEVO1TAB40 PO; +METF-839 PO; +PERC5TAB12 PO
[2024-05-01 16:03] LABS: APPEARANCE, URINE HAZY (CLEAR); BACTERIA, URINE AUTO 1+ (NEGATIVE); BILIRUBIN, URINE AUTO NEGATIVE (NEGATIVE); BLOOD, URINE BLOOD NEGATIVE (NEGATIVE); CALCIUM OXALATE CRYSTALS SMALL; COLOR, URINE YELLOW (YELLOW); GLUCOSE, URINE (UA) AUTO NEGATIVE (NEGATIVE); KETONE, URINE AUTO NEGATIVE (NEGATIVE); LEUKOCYTE ESTERASE, URINE AUTO 2+ (NEGATIVE); NITRITE, URINE AUTO NEGATIVE (NEGATIVE); PROTEIN, URINE AUTO 1+ mg/dL (NEGATIVE); RBC, URINE AUTO 1 /HPF (0-3); SQUAMOUS EPITHELIAL CELL UR AU 4 /HPF (0-6); UROBILINOGEN, URINE AUTO 0.2 mg/dL (0.0-2.0); WBC, URINE AUTO 26 /HPF (0-3)
== END ==
LOC: M SMT 15:02
PROVIDERS: ATTEND Urology
DX: N20.1 Calculus of ureter (principal)

== ENCOUNTER → 2024-05-18 | Outpatient (REF) | payer BC ==
[~2024-05-18] MED LIST changes: +INSULANT SQ; +METO1TAB7 PO; +OXYB5TAB14 PO
[2024-05-18 18:59] LABS: HEMATOCRIT 36.3 % (36.0-47.0); HEMOGLOBIN 11.1 g/dl (12.0-15.5); MEAN CORPUSCULAR HGB CONC 30.6 g/dl (32.0-36.5); MEAN CORPUSCULAR VOLUME 94.8 fl (80.0-96.0); PLATELET COUNT, AUTOMATED 486 10^3/uL (150-450); RED BLOOD COUNT 3.83 10^6/uL (4.00-5.40)
[2024-05-18 19:20] LABS: ALBUMIN 2.9 G/DL (3.2-5.2); ALKALINE PHOSPHATASE 79 U/L (35-104); ALT/SGPT 10 U/L (7.0-40); AST/SGOT < 8 U/L (<34); BILIRUBIN,TOTAL 0.3 MG/DL (0.3-1.2); BLOOD UREA NITROGEN 10 MG/DL (9-23); CALCIUM LEVEL 9.4 MG/DL (8.5-10.1); CARBON DIOXIDE LEVEL 31 MMOL/L (20-31); CHLORIDE LEVEL 106 MMOL/L (98-107); CREATININE FOR GFR 0.78 MG/DL (0.55-1.30); GLOMERULAR FILTRATION RATE > 60.0 (>51); GLUCOSE, FASTING 120 MG/DL (60-100); POTASSIUM SERUM 4.2 MMOL/L (3.5-5.1); SODIUM LEVEL 141 MMOL/L (136-145); TOTAL PROTEIN 7.2 G/DL (5.7-8.2)
== END ==
LOC: M LABDRWAD 17:30
PROVIDERS: ATTEND Urology
DX: N20.1 Calculus of ureter (principal)

== ENCOUNTER 2024-05-21 09:09 | Day surgery (SDC) | payer BC ==
[~2024-05-21] VITALS: Ht 167.6 cm; Wt 76.1 kg
[2024-05-21] MEDS ORDERED: MIDAZOLAM INJ 2MG/2ML VIAL As Ordered ONE (10:08)
[2024-05-21] MEDS ORDERED: propofoL 200 MG/20 ML VIAL As Ordered ONE (10:08)
[2024-05-21] MEDS ORDERED: ONDANSETRON 4MG 2ML VIAL As Ordered ONE (10:08)
[2024-05-21] MEDS ORDERED: LIDOCAINE 2% 100MG/5ML SDV (FOR ANES.) As Ordered ONE (10:08)
[2024-05-21] MEDS: NS 1,000 ML IV SCH (10:18)
[2024-05-21] MEDS: ceFAZolin SOD 2 GM in IV 1 EA IV ONE (11:13)
[2024-05-21] MEDS ORDERED: ACETAMINOPHEN 1000MG/100ML IV BAG As Ordered ONE (11:17)
[2024-05-21 12:27] VITALS: BP 132/76; TEMP 98.8; O2SAT 96
== END 2024-05-21 12:34 | disposition home or self-care (01) ==
LOC: M SDC 09:09
PROVIDERS: ATTEND Urology
DX: N20.1 Calculus of ureter (principal); I10 Essential (primary) hypertension; E11.9 Type 2 diabetes mellitus without complications; E03.9 Hypothyroidism, unspecified; Z79.4 Long term (current) use of insulin; Z79.899 Other long term (current) drug therapy; Z88.8 Allergy status to other drugs, medicaments and biological substances
CPT/HCPCS: 50590; 74018; J0131; J0690; J1100; J2250; J2405

== ENCOUNTER → 2024-06-10 | Outpatient (CLI) | payer BC | LOC: M LAB 11:44 | PROVIDERS: ATTEND Physician Assistant | DX: Z87.442 Personal history of urinary calculi (principal); Z96.0 Presence of urogenital implants ==

== ENCOUNTER → 2024-06-12 | Outpatient (REF) | payer BC, MEDICARE | LOC: M SMT 17:19 | PROVIDERS: ATTEND Urology | DX: Z96.0 Presence of urogenital implants (principal) ==

== ENCOUNTER → 2024-07-20 | Outpatient (REF) | payer MEDICARE ==
[2024-07-20 13:51] LABS: HEMATOCRIT 44.5 % (36.0-47.0); HEMOGLOBIN 14.6 g/dl (12.0-15.5); MEAN CORPUSCULAR HEMOGLOBIN 29.1 pg (27.0-33.0); MEAN CORPUSCULAR HGB CONC 32.8 g/dl (32.0-36.5); MEAN CORPUSCULAR VOLUME 88.8 fl (80.0-96.0); PLATELET COUNT, AUTOMATED 316 10^3/uL (150-450); RED BLOOD COUNT 5.01 10^6/uL (4.00-5.40); WHITE BLOOD COUNT 7.4 10^3/uL (4.0-10.0)
[2024-07-20 14:11] LABS: HEMOGLOBIN A1c 5.5 % (4.0-6.0)
[2024-07-20 14:15] LABS: CHOLESTEROL RISK RATIO 5.34 (<5); HDL CHOLESTEROL 38.9 MG/DL (>40); LDL CHOLESTEROL 105.3 MG/DL (<100); NON-HDL-C 169.1 MG/DL
== END ==
LOC: M SFHCADAM 10:44
PROVIDERS: ATTEND Physician Assistant
DX: R73.03 Prediabetes (principal); I10 Essential (primary) hypertension; E78.00 Pure hypercholesterolemia, unspecified; Z12.31 Encounter for screening mammogram for malignant neoplasm of breast; F51.01 Primary insomnia; E03.9 Hypothyroidism, unspecified; F32.0 Major depressive disorder, single episode, mild; N20.0 Calculus of kidney

== ENCOUNTER → 2024-07-22 | Outpatient (CLI) | payer MEDICARE | LOC: M WHC 13:29 | PROVIDERS: ATTEND Physician Assistant | DX: E78.00 Pure hypercholesterolemia, unspecified (principal); E11.9 Type 2 diabetes mellitus without complications; I10 Essential (primary) hypertension ==

== ENCOUNTER → 2024-07-22 | Outpatient (REF) | payer MEDICARE ==
[2024-07-22 18:37] LABS: ALBUMIN 3.9 G/DL (3.2-5.2); ALKALINE PHOSPHATASE 80 U/L (35-104); ALT/SGPT 14 U/L (7.0-40); AST/SGOT 8 U/L (<34); BILIRUBIN,TOTAL 0.2 MG/DL (0.3-1.2); BLOOD UREA NITROGEN 19 MG/DL (9-23); CALCIUM LEVEL 9.8 MG/DL (8.5-10.1); CARBON DIOXIDE LEVEL 31 MMOL/L (20-31); CHLORIDE LEVEL 104 MMOL/L (98-107); CREATININE FOR GFR 0.86 MG/DL (0.55-1.30); FREE T4 1.01 NG/DL (0.89-1.76); GLOMERULAR FILTRATION RATE > 60.0 (>51); GLUCOSE, FASTING 97 MG/DL (60-100); POTASSIUM SERUM 4.6 MMOL/L (3.5-5.1); SODIUM LEVEL 143 MMOL/L (136-145); THYROID STIMULATING HORMONE 0.466 uIU/ML (0.55-4.78); TOTAL PROTEIN 7.1 G/DL (5.7-8.2)
[2024-07-24 13:26] LABS: HPV APTIMA Not Detected (Not Detected)
== END ==
LOC: M LABDRWAD 17:06
PROVIDERS: ATTEND Physician Assistant
DX: Z12.4 Encounter for screening for malignant neoplasm of cervix (principal); E78.00 Pure hypercholesterolemia, unspecified; E11.9 Type 2 diabetes mellitus without complications; I10 Essential (primary) hypertension; Z12.39 Encounter for other screening for malignant neoplasm of breast
CPT/HCPCS: 36415; 80053; 84439; 84443; 87624; G0123

== ENCOUNTER → 2024-11-03 | Outpatient (REF) | payer MEDICARE ==
[~2024-11-03] MED LIST changes: -FLOM0.4C39 PO; +TAMS-18 PO
[2024-11-03 14:41] LABS: HEMOGLOBIN A1c 5.2 % (4.0-6.0)
[2024-11-03 14:50] LABS: ALBUMIN 3.8 G/DL (3.2-5.2); BILIRUBIN,TOTAL 0.5 MG/DL (0.3-1.2); CALCIUM LEVEL 9.3 MG/DL (8.3-10.6); CHOLESTEROL RISK RATIO 3.39 (<5); CREATININE FOR GFR 0.93 MG/DL (0.55-1.30); GLOMERULAR FILTRATION RATE 70.4 (>45); HDL CHOLESTEROL 38.3 MG/DL (>40); LDL CHOLESTEROL 62.3 MG/DL (<100); NON-HDL-C 91.7 MG/DL; POTASSIUM SERUM 3.6 MMOL/L (3.5-5.1); TOTAL PROTEIN 6.9 G/DL (5.7-8.2)
== END ==
LOC: M SFHCADAM 08:25
PROVIDERS: ATTEND Physician Assistant
DX: E78.00 Pure hypercholesterolemia, unspecified (principal); E11.9 Type 2 diabetes mellitus without complications; I10 Essential (primary) hypertension

== ENCOUNTER → 2025-05-17 | Outpatient (REF) | payer BC | LOC: M SFHCADAM 08:37 | PROVIDERS: ATTEND Physician Assistant | DX: I10 Essential (primary) hypertension (principal); E03.9 Hypothyroidism, unspecified; E11.9 Type 2 diabetes mellitus without complications; E78.00 Pure hypercholesterolemia, unspecified ==

== ENCOUNTER → 2025-05-17 | Outpatient (CLI) | payer BC, MEDICARE ==
[2025-05-17 13:44] LABS: PLATELET COUNT, AUTOMATED 286 10^3/uL (150-450)
[2025-05-17 14:00] LABS: ESTIMATED AVERAGE GLUCOSE 108.0 MG/DL (60-110)
[2025-05-17 14:16] LABS: CREATININE, URINE 157.2 MG/DL
[2025-05-17 14:17] LABS: MALB URINE SIEMENS 10.0 MG/L; MAU/CREAT RATIO 6.3 MCG/MG (0.0-30.0)
[2025-05-17 14:18] LABS: ALT/SGPT 12.0 U/L (7.0-40); AST/SGOT 14.0 U/L (<34); CALCIUM LEVEL 9.1 MG/DL (8.3-10.6); CARBON DIOXIDE LEVEL 32.0 MMOL/L (20-31); CHLORIDE LEVEL 105.0 MMOL/L (98-107); CHOLESTEROL LEVEL 131.0 MG/DL (<200); CHOLESTEROL RISK RATIO 3.39 (<5); CREATININE FOR GFR 1.05 MG/DL (0.55-1.30); GLOMERULAR FILTRATION RATE 60.8 (>45); LDL CHOLESTEROL 57.2 MG/DL (<100); NON-HDL-C 92.4 MG/DL; POTASSIUM SERUM 4.9 MMOL/L (3.5-5.1); SODIUM LEVEL 147.0 MMOL/L (136-145); TRIGLYCERIDES LEVEL 176.0 MG/DL (<150)
== END ==
LOC: M LABDRWAD 08:25
PROVIDERS: ATTEND Physician Assistant
DX: I10 Essential (primary) hypertension (principal); E03.9 Hypothyroidism, unspecified; E11.9 Type 2 diabetes mellitus without complications; E78.00 Pure hypercholesterolemia, unspecified

== ENCOUNTER → 2025-05-28 | Outpatient (CLI) | payer BC | LOC: M WHC 14:53 | PROVIDERS: ATTEND Physician Assistant | DX: Z12.31 Encounter for screening mammogram for malignant neoplasm of breast (principal); R92.323 Mammographic fibroglandular density, bilateral breasts; R92.8 Other abnormal and inconclusive findings on diagnostic imaging of breast ==

== ENCOUNTER → 2025-06-28 | Outpatient (CLI) | payer BC | LOC: M WHC 14:50 | PROVIDERS: ATTEND Physician Assistant | DX: R92.323 Mammographic fibroglandular density, bilateral breasts (principal) | CPT/HCPCS: 74018; 77065; G0279 ==

== ENCOUNTER → 2025-06-28 | Outpatient (CLI) | payer BC | LOC: M ADAMS 12:14 | PROVIDERS: ATTEND Urology | DX: N20.0 Calculus of kidney (principal) ==